=== PATIENT | female | born 1955 | race Hispanic/Latino ===

== ENCOUNTER 2018-03-03 09:21 | Outpatient (CLI) | payer BC ==
--- NOTE | 2018-03-04 09:25 | Mammography Report ---
BILATERAL DIGITAL SCREENING MAMMOGRAM with CAD: 03/03/18 09:21:00 CLINICAL: Routine screening. COMPARISON:09/15/16 FINDINGS: The breasts are heterogeneously dense, which may obscure small masses. A right asymmetry on the CC view requires additional imaging.No architectural distortion or suspicious calcifications.The left breast is negative. IMPRESSION: Right asymmetry requiring further workup. BI-RADS CATEGORY: 0 -- Additional Imaging Evaluation Required RECOMMENDATION: Recall for right lateralmedial and spot magnification CC views and right breast ultrasound if needed. ACR BI-RADS MAMMOGRAPHIC CODES: 0 = Needs additional imaging evaluation; 1 = Negative; 2 = Benign; 3 = Probably benign; 4 = Suspicious; 5 = Malignant; 6 = Known biopsy-proven malignancy COMMENT: 1. Dense breast tissue, i.e., adenosis, fibrocystic changes, etc., may obscure an underlying neoplasm. 2. Approximately 10% of cancers are not detected with mammography. 3. A negative mammography report should not delay biopsy if a clinically suspicious mass is present. COMMENT: Patient follow-up letters are generated via our [employer] application.
== END 2018-03-03 09:22 | disposition home or self-care (01) ==
LOC: SPVWC 09:21
PROVIDERS: ATTEND Obstetrics & Gynecology
DX: Z12.31 Encounter for screening mammogram for malignant neoplasm of breast (principal); N64.89 Other specified disorders of breast
CPT/HCPCS: 77067

== ENCOUNTER 2018-03-23 08:49 | Outpatient (CLI) | payer BC ==
--- NOTE | 2018-03-23 10:55 | Mammography Report ---
RIGHT DIGITAL DIAGNOSTIC MAMMOGRAM : 03/23/18 08:49:00 CLINICAL: Recalled for asymmetry. COMPARISON:03/23/18 screening FINDINGS: Lateralmedial and spot magnification CC views were performed and are negative. Ultrasound of the right breast demonstrated a benign cyst at 10 o'clock 5 cm from the nipple measuring 4 x 3 x 3 mm. It correlates with the mammographic asymmetry. No solid mass or shadowing. IMPRESSION: A single tiny benign cyst. BI-RADS CATEGORY: 2 - - Benign RECOMMENDATION: Routine mammographic screening in one year. ACR BI-RADS MAMMOGRAPHIC CODES: 0 = Needs additional imaging evaluation; 1 = Negative; 2 = Benign; 3 = Probably benign; 4 = Suspicious; 5 = Malignant; 6 = Known biopsy-proven malignancy COMMENT: 1. Dense breast tissue, i.e., adenosis, fibrocystic changes, etc., may obscure an underlying neoplasm. 2. Approximately 10% of cancers are not detected with mammography. 3. A negative mammography report should not delay biopsy if a clinically suspicious mass is present. COMMENT: Patient follow-up letters are generated via our [employer] application.
== END 2018-03-23 08:50 | disposition home or self-care (01) ==
LOC: SPVWC 08:49
PROVIDERS: ATTEND Obstetrics & Gynecology
DX: N60.01 Solitary cyst of right breast (principal)

== ENCOUNTER 2019-09-26 12:39 | Outpatient (CLI) | payer BC ==
--- NOTE | 2019-09-27 12:24 | Mammography Report ---
DIGITAL SCREENING MAMMOGRAM WITH CAD, 09/26/2019 INDICATION: Routine screening mammography. TECHNIQUE: Digital bilateral 2D mammography was obtained in the craniocaudal and mediolateral obliq ue projections. This examination was interpreted with the benefit of Computer-Aided Detection analysi s. COMPARISON: 03/03/2018 and 09/15/2016 FINDINGS: Breast Density: The breasts are heterogeneously dense, which may obscure small masses. There is no evidence of dominant mass, suspicious calcifications or architectural distortion in eithe r breast. IMPRESSION: No mammographic evidence of malignancy. Follow up recommendation: Routine yearly BI-RADS Category 1: Negative. A "normal" or negative report should not discourage follow up or biopsy of a clinically significant f inding. A written summary of these findings will be mailed to the patient. The patient will be entered into a mammography reporting system which will generate a reminder letter for the patient's next appointmen t at the appropriate interval. The [employer] recommends yearly mammograms starting at age 40 and continuing as l taz as a woman is in good health. Breast MRI is recommended for women with an approximate 20-25% or greater lifetime risk of breast cancer, including women with a strong family history of breast or ova kyle cancer or who have been treated for Hodgkin's disease. Signer Name: Terrence Lei MD Signed: 09/27/2019 12:20 PM Workstation Name: [id number]
== END 2019-09-26 12:40 | disposition home or self-care (01) ==
LOC: SPVWC 12:39
PROVIDERS: ATTEND Obstetrics & Gynecology
DX: Z12.31 Encounter for screening mammogram for malignant neoplasm of breast (principal)
CPT/HCPCS: 77067

== ENCOUNTER 2020-10-01 10:39 | Outpatient (CLI) | payer BC ==
--- NOTE | 2020-10-01 17:05 | Mammography Report ---
DIGITAL SCREENING MAMMOGRAM WITH CAD, 10/01/2020 INDICATION: Routine screening mammography. TECHNIQUE: Digital bilateral 2D mammography was obtained in the craniocaudal and mediolateral obliq ue projections. This examination was interpreted with the benefit of Computer-Aided Detection analysi s. COMPARISON: 03/03/2018. FINDINGS: Breast Density: There are scattered areas of fibroglandular density. There is no evidence of dominant mass, suspicious calcifications or architectural distortion in eithe r breast. IMPRESSION: Follow up recommendation: Routine yearly BI-RADS Category 1: Negative. A "normal" or negative report should not discourage follow up or biopsy of a clinically significant f inding. A written summary of these findings will be mailed to the patient. The patient will be entered into a mammography reporting system which will generate a reminder letter for the patient's next appointmen t at the appropriate interval. The [employer] recommends yearly mammograms starting at age 40 and continuing as l taz as a woman is in good health. Breast MRI is recommended for women with an approximate 20-25% or greater lifetime risk of breast cancer, including women with a strong family history of breast or ova kyle cancer or who have been treated for Hodgkin's disease. Signer Name: Roderick Truong MD Signed: 10/01/2020 5:01 PM Workstation Name: [id number]
== END 2020-10-01 10:40 | disposition home or self-care (01) ==
LOC: SPVWC 10:39
PROVIDERS: ATTEND Obstetrics & Gynecology
DX: Z12.31 Encounter for screening mammogram for malignant neoplasm of breast (principal)
CPT/HCPCS: 77067

== ENCOUNTER 2021-11-13 09:28 | Outpatient (CLI) | payer MEDICARE ==
--- NOTE | 2021-11-14 09:21 | Mammography Report ---
DIGITAL SCREENING MAMMOGRAM WITH CAD, 11/13/2021 CLINICAL INFORMATION / INDICATION: Routine screening mammography. SCREENING MAMMO Z12.31 TECHNIQUE: Digital bilateral 2D mammography was obtained in the craniocaudal and mediolateral obliqu e projections. This examination was interpreted with the benefit of Computer-Aided Detection analysis . COMPARISON: October 01, 2020, September 26, 2019, March 03, 2018 FINDINGS: Breast Density: There are scattered areas of fibroglandular density. No dominant mass, suspicious calcifications, or architectural distortion in either breast. IMPRESSION: No mammographic evidence of malignancy. Follow up recommendation: Routine yearly BI-RADS Category 1: NEGATIVE A "normal" or negative report should not discourage follow up or biopsy of a clinically significant f inding. A written summary of these findings will be mailed to the patient. The patient will be entered into a mammography reporting system which will generate a reminder letter for the patient's next appointmen t at the appropriate interval. The [employer] recommends yearly mammograms starting at age 40 and continuing as l taz as a woman is in good health. Breast MRI is recommended for women with an approximate 20-25% or greater lifetime risk of breast cancer, including women with a strong family history of breast or ova kyle cancer or who have been treated for Hodgkin's disease. Signer Name: Santos Ware DO Signed: 11/14/2021 9:16 AM Workstation Name: [id number]
== END 2021-11-13 09:29 | disposition home or self-care (01) ==
LOC: SPVWC 09:28
PROVIDERS: ATTEND Obstetrics & Gynecology
DX: Z12.31 Encounter for screening mammogram for malignant neoplasm of breast (principal)
CPT/HCPCS: 77067